=== PATIENT | female | born 1930 | race Caucasian/White ===

== ENCOUNTER 2018-08-20 16:53 | Emergency (ER) | payer MEDICARE ==
[2018-08-20] MEDS ORDERED: Oseltamivir 75 MG CAP ONE (17:12)
--- NOTE | 2018-08-20 18:03 | RAD ---
PA AND LATERAL VIEWS CHEST: 08/20/18 HISTORY: Cough. FINDINGS: Comparison is made with exam of 07/24/17. The heart is enlarged. The aorta is tortuous. 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 The lungs are well expanded without focal areas of consolidation, pneumothoraces, callie pulmonary edema or ple ural effusions are seen. Degenerative changes in the spine. IMPRESSION: No acute process. POS: H
== END 2018-08-20 18:15 | disposition home or self-care (01) ==
LOC: SCSER 16:53
DX: J11.1 Influenza due to unidentified influenza virus with other respiratory manifestations (principal); I10 Essential (primary) hypertension; F41.9 Anxiety disorder, unspecified; I48.91 Unspecified atrial fibrillation
CPT/HCPCS: 71046; 94640; 94760; J7620

== ENCOUNTER 2019-04-12 13:20 | Outpatient (CLI) | payer MEDICARE ==
--- NOTE | 2019-04-12 15:03 | MMO ---
Bilateral MAMMO Bilat Screen [facility]. CLINICAL HISTORY: Patient is 88 years old and is seen for screening. The patient has the following family history of breast cancer: paternal aunt. The patient has no personal history of cancer. VIEWS: The views performed were: bilateral craniocaudal with tomosynthesis and bilateral mediolateral oblique with tomosynthesis. FILMS COMPARED: The present examination has been compared to prior imaging studies performed at [facility] on 11/29/2003, 04/07/2006, 05/01/2008 and 08/20/2012. This study has been interpreted with the assistance of computer-aided detection. MAMMOGRAM FINDINGS: There are scattered fibroglandular densities. Benign calcifications are noted bilaterally. There are no suspicious masses, suspicious calcifications, or new areas of architectural distortion. IMPRESSION: THERE IS NO MAMMOGRAPHIC EVIDENCE OF MALIGNANCY. A ROUTINE FOLLOW-UP MAMMOGRAM IN 1 YEAR IS RECOMMENDED. THE RESULTS OF THIS EXAM WERE SENT TO THE PATIENT. ACR BI-RADS Category 2 - Benign finding MAMMOGRAPHY NOTE: 1. A negative mammogram report should not delay a biopsy if a dominant of clinically suspicious mass is present. 2. Approximately 10% to 15% of breast cancers are not detected by mammography. 3. Adenosis and dense breasts may obscure an underlying neoplasm. Reported by: MALATHI NEWELL MD Electonically Signed: [id number]
== END 2019-04-12 13:21 | disposition home or self-care (01) ==
LOC: BICMAMMO 13:20
PROVIDERS: ATTEND Internal Medicine
DX: Z12.31 Encounter for screening mammogram for malignant neoplasm of breast (principal); Z80.3 Family history of malignant neoplasm of breast
CPT/HCPCS: 77063; 77067

== ENCOUNTER 2019-12-21 08:23 | Day surgery (SDC) | payer MEDICARE ==
[2019-12-20 17:39] VITALS: BMI 26.9
[2019-12-21 08:40] LABS: Hemoglobin 10.9 g/dL (12.0-16.0); Mean Corpuscular HGB CONC 31.2 g/dL (32.0-36.0); Mean Corpuscular Hemoglobin 34.9 pg (27.0-31.0); Mean Platelet Volume 9.9 fL (7.4-10.4); Platelet Count 475 thou/uL (130-400); RBC Distribution Width 28.3 % (11.5-14.5); Red Blood Cell (RBC) Count 3.13 mill/uL (4.20-5.40); White Blood Cell (WBC) Count 5.3 thou/uL (4.8-10.8)
[2019-12-21 08:48] LABS: PTT 35.4 sec (22.9-36.1); Prothrombin Time 13.1 sec (12.0-14.7)
[2019-12-21 09:00] LABS: Anisocytosis MARKED = >30 cells (100X) (0-5/hpf); Band 2 % (5-11); Eosinophils 1 % (0-10); Lymphocytes 51 % (21-51); MDiff Complete? YES; Macrocytosis MODERATE=16-30 cells (100X) (0-5/hpf); Monocytes 18 % (0-10); Neutrophil 26 % (42-75); Platelet Morphology Comment Appears Increased; Polychromasia MODERATE = 3-4 cells (100X) (0-2/hpf)
[2019-12-21 12:23] VITALS: BP 165/53; TEMP 97.6
--- NOTE | 2019-12-21 16:11 | CT ---
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 Patient placed prone on CT table. Skin posterior to left posterior superior iliac spine was prepped and draped in usual sterile fashion. 25-gauge needle used to apply buffered lidocaine superficially, then on the periosteum of the PSIS. 12 introducer needle with style tte distal tip purchased through posterior cortex of bone. Stylette removed. Marrow bloody fluid aspirated, 3 mL first syringe, and 6 mL second syringe, and given to resource technician from laboratory. With stylette removed, mechanical drill of On-control mounted on outer cannula. Quick thrust 3 cm depth in and out through iliac bone. Compression held at the puncture site. Patient tolerated procedure wel l. No complications. Bone marrow core biopsy plug given to geophysical laboratory supervisor. IMPRESSION: Successful CT-guided bone marrow aspiration and bone marrow core biopsy
--- NOTE | 2019-12-23 13:18 | CT ---
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 Patient placed prone on CT table. Skin posterior to left posterior superior iliac spine was prepped and draped in usual sterile fashion. 25-gauge needle used to apply buffered lidocaine superficially, then on the periosteum of the PSIS. 12 introducer needle with style tte distal tip purchased through posterior cortex of bone. Stylette removed. Marrow bloody fluid aspirated, 3 mL first syringe, and 6 mL second syringe, and given to forest ranger technician from laboratory. With stylette removed, mechanical drill of On-control mounted on outer cannula. Quick thrust 3 cm depth in and out through iliac bone. Compression held at the puncture site. Patient tolerated procedure wel l. No complications. Bone marrow core biopsy plug given to blood bank laboratory professional. IMPRESSION: Successful CT-guided bone marrow aspiration and bone marrow core biopsy Transcribed Date/Time: 12/23/2019 1:17 PM
== END 2019-12-21 11:40 | disposition home or self-care (01) ==
LOC: CT 08:23
PROVIDERS: ATTEND Internal Medicine Hematology & Oncology
PROC: 07DR3ZX Extraction of Iliac Bone Marrow, Percutaneous Approach, Diagnostic (ICD-10-PCS; principal; 2019-12-21)
DX: D46.4 Refractory anemia, unspecified (principal); I10 Essential (primary) hypertension; I48.91 Unspecified atrial fibrillation; F41.9 Anxiety disorder, unspecified; F32.9 Major depressive disorder, single episode, unspecified; Z79.82 Long term (current) use of aspirin; Z79.899 Other long term (current) drug therapy; Z88.2 Allergy status to sulfonamides; Z95.0 Presence of cardiac pacemaker
CPT/HCPCS: 20225; 36415; 77012; 85025; 85097; 85610; 85730; 88184; 88237; 88264; 88280; 88305; 88311; 88313; 88341; 88342

== ENCOUNTER 2021-02-12 12:32 | Outpatient (CLI) | payer MEDICARE | END 2021-02-12 12:33 | disposition home or self-care (01) | LOC: CT 12:32 | PROVIDERS: ATTEND Internal Medicine Hematology & Oncology | DX: M79.605 Pain in left leg (principal); R60.0 Localized edema; D46.A Refractory cytopenia with multilineage dysplasia ==

== ENCOUNTER 2021-05-06 13:56 | Outpatient (CLI) | payer MEDICARE | END 2021-05-06 13:57 | disposition home or self-care (01) | LOC: RAD 13:56 | PROVIDERS: ATTEND Internal Medicine Critical Care Medicine | DX: R06.00 Dyspnea, unspecified (principal); I51.7 Cardiomegaly | CPT/HCPCS: 71046 ==